=== PATIENT | female | born 1980 | race Caucasian/White ===

== ENCOUNTER 2017-04-15 09:01 | Emergency (ER) | payer SELFPAY ==
[~2017-04-15] VITALS: Ht 167.6 cm; Wt 72.4 kg
[2017-04-15 09:03] VITALS: BP 132/75; PULSE 71; RESP 14; TEMP 98.5; O2SAT 99
[2017-04-15] MEDS ORDERED: PROBCAP11 PO (09:23)
[2017-04-15] MEDS ORDERED: SODIUM CHLORIDE 0.9% FLUSH 10 ML FLUSH IV FLUSH PRN (09:45)
[2017-04-15 10:13] VITALS: BP 132/75; PULSE 70; RESP 16
--- NOTE | 2017-04-15 10:14 | RADRPT ---
EXAM DATE/TIME: 04/15/2017 09:50 [place] COMPARISON: No previous studies available for comparison. INDICATIONS : Right upper quadrant pain. MEDICAL HISTORY : PCOS. SURGICAL HISTORY : Cervical biopsy. ENCOUNTER: Initial ACUITY: 1 week PAIN SCORE: 2/10 LOCATION: Right upper quadrant MEASUREMENTS: LIVER: 20.3 cm length COMMON DUCT: 4 mm RIGHT KIDNEY: 13.0 x 6.1 x 4.4 cm FINDINGS: LIVER: Normal echotexture with a small cystic structure in the left lobe measuring approximately 1 cm. There is no ductal dilatation. The liver appears mildly prominent measuring up to 20 cm. COMMON DUCT: No intraluminal mass or stone visualized. GALLBLADDER: Contains no stones, demonstrates no wall thickening or pericholecystic fluid. PANCREAS: The visualized portions are within normal limits. RIGHT KIDNEY: No evidence of hydronephrosis, stone, or mass. CONCLUSION: 1. The gallbladder is unremarkable in appearance with no evidence of cholelithiasis. 2. The liver appears mildly prominent in size with small simple cyst in the left lobe. Connor Saldivar MD on April 15, 2017 at 10:11 Board Certified Radiologist. This report was verified electronically.
--- NOTE | 2017-04-15 10:35 | PD ---
HPI Chief Complaint: GI Complaint Time Seen by Provider: 09:30 Travel History International Travel<30 days: No Contact w/Intl Traveler<30days: No Traveled to known affect area: No History of Present Illness HPI This is a 36-year-old female who presents to the emergency department with several days of pain in her right upper abdomen, moderate severity, constant, worse with deep breaths, improved with rest. Initially she thought she pulled something because she does work out but the pain has been getting more intense. She denies any nausea, vomiting, fevers, chills, diarrhea or constipation. She's not had any dysuria or hematuria and denies any vaginal discharge. Her last menstrual cycle was one week ago. She does drink alcohol on a daily basis. PFSH Past Medical History Reproductive: Yes (PCOS) Tetanus Vaccination: < 5 Years Influenza Vaccination: Yes ?: Not LMP: LAST WEEK Past Surgical History Other Surgery: Yes (CERVICAL BIOPSY) Social History Alcohol Use: Yes (DAILY) Tobacco Use: Yes (VAPE) Substance Use: No Allergies-Medications (Allergen,Severity, Reaction): Coded Allergies: bee venom protein (honey bee) (Verified Allergy, Unknown, 04/15/17) Reported Meds & Prescriptions Reported Meds & Active Scripts Active Reported [Probiotic] 1 Chew PO DAILY Review of Systems Except as stated in HPI: all other systems reviewed are Neg Physical Exam Narrative GENERAL:Well appearing, no acute distress SKIN: Focused skin assessment warm and dry. HEAD: Atraumatic. Normocephalic. EYES: Pupils equal and round. No injection or drainage. ENT: Moist mucous membranes NECK: Trachea midline. CARDIOVASCULAR: Regular rate and rhythm. No murmur appreciated. RESPIRATORY: Clear to auscultation. Breath sounds equal bilaterally. GASTROINTESTINAL: Abdomen soft, tender to palpation in the right upper quadrant and right lower quadrants with no rebound or guarding. MUSCULOSKELETAL: No obvious deformities. NEUROLOGICAL: Awake and alert. No obvious cranial nerve deficits. Moving all extremities. PSYCHIATRIC: Appropriate mood and affect; insight and judgment normal. Data Data Last Documented VS Vital Signs Date Time Temp Pulse Resp B/P (MAP) Pulse Ox O2 Delivery O2 Flow Rate FiO2 04/15/17 10:13 70 16 132/75 (94) Room Air 04/15/17 09:03 98.5 99 Orders Orders Complete Blood Count With Diff (04/15/17 09:40) Comprehensive Metabolic Panel (04/15/17 09:40) Lipase (04/15/17 09:40) Urinalysis - C+S If Indicated (04/15/17 09:40) Us Abdomen Gallbladder (04/15/17 ) Iv Access Insert/Monitor (04/15/17 09:40) Ecg Monitoring (04/15/17 09:40) Oximetry (04/15/17 09:40) Sodium Chloride 0.9% Flush (Ns Flush) (04/15/17 09:45) Ed Urine Pregnancytest Poc (04/15/17 09:40) Labs Laboratory Tests Test 04/15/17 10:05 04/15/17 10:15 White Blood Count 9.7 TH/MM3 Red Blood Count 3.96 MIL/MM3 Hemoglobin 13.5 GM/DL Hematocrit 39.5 % Mean Corpuscular Volume 99.8 FL Mean Corpuscular Hemoglobin 34.2 PG Mean Corpuscular Hemoglobin Concent 34.3 % Red Cell Distribution Width 13.4 % Platelet Count 193 TH/MM3 Mean Platelet Volume 8.5 FL Neutrophils (%) (Auto) 62.6 % Lymphocytes (%) (Auto) 28.4 % Monocytes (%) (Auto) 6.8 % Eosinophils (%) (Auto) 1.4 % Basophils (%) (Auto) 0.8 % Neutrophils # (Auto) 6.1 TH/MM3 Lymphocytes # (Auto) 2.7 TH/MM3 Monocytes # (Auto) 0.7 TH/MM3 Eosinophils # (Auto) 0.1 TH/MM3 Basophils # (Auto) 0.1 TH/MM3 CBC Comment DIFF FINAL Differential Comment Blood Urea Nitrogen 13 MG/DL Creatinine 0.74 MG/DL Random Glucose 88 MG/DL Total Protein 7.3 GM/DL Albumin 3.6 GM/DL Calcium Level 9.2 MG/DL Alkaline Phosphatase 51 U/L Aspartate Amino Transf (AST/SGOT) 27 U/L Alanine Aminotransferase (ALT/SGPT) 35 U/L Total Bilirubin 0.4 MG/DL Sodium Level 139 MEQ/L Potassium Level 4.1 MEQ/L Chloride Level 105 MEQ/L Carbon Dioxide Level 28.7 MEQ/L Anion Gap 5 MEQ/L Estimat Glomerular Filtration Rate 89 ML/MIN Lipase 123 U/L Urine Color LIGHT-YELLOW Urine Turbidity CLEAR Urine pH 7.5 Urine Specific [place] 1.006 Urine Protein NEG mg/dL Urine Glucose (UA) NEG mg/dL Urine Ketones NEG mg/dL Urine Occult Blood NEG Urine Nitrite NEG Urine Bilirubin NEG Urine Urobilinogen LESS THAN 2.0 MG/DL Urine Leukocyte Esterase NEG Urine RBC LESS THAN 1 /hpf Urine Squamous Epithelial Cells 1 /hpf Microscopic Urinalysis Comment CULT NOT INDICATED MDM Medical Decision Making Medical Screen Exam Complete: Yes Emergency Medical Condition: Yes Interpretation(s) Afebrile, no tachycardia, normotensive No leukocytosis Electrolytes are reassuring Lipase is normal Urinalysis is negative for infection Chest x-ray: Reassuring Ultrasound with no evidence of cholelithiasis Differential Diagnosis Cholelithiasis, cholecystitis, pancreatitis, gastritis, peptic ulcer disease, costochondritis, pulmonary embolism Narrative Course This is a 36-year-old female who presents to the emergency department with right upper quadrant abdominal pain. She has a fairly benign physical exam but is tender in the right upper quadrant and epigastrium. She has normal vital signs including an oxygen saturation of 99%. Labs are obtained which were all reassuring. Ultrasound of the right upper quadrant demonstrates no stones. Urinalysis is negative for blood so I doubt kidney stone. She is PERC negative so I doubt pulmonary embolism. I suspect this is a muscle strain. I advised her to use anti-inflammatories and heat as needed. Patient can follow up with her primary care physician if she doesn't improve. Diagnosis Primary Impression: Muscle strain Patient Instructions: General Instructions Additional Instructions: If you develop severe chest pain, shortness of breath, sweating, lightheadedness , dizziness or difficulty breathing return to the emergency department immediately. Followup with your primary care physician in 2-3 days if your symptoms are not resolved. Med/Other Pt SpecificInfo: Prescription(s) given Scripts Naproxen (Naproxen) 500 Mg Tab 500 MG PO BID Y for PAIN SCALE 4 TO 10, #20 TAB 0 Refills Prov: Em Hlolingsworth MD 04/15/17 Disposition: 01 DISCHARGE HOME Condition: Stable Em Hollingsworth MD Apr 15, 2017 10:35
[2017-04-15 10:38] LABS: AUTOMATED NEUTROPHIL # 6.1 TH/MM3 (1.8-7.7); BASOPHIL # 0.1 TH/MM3 (0-0.2); BASOPHIL % 0.8 % (0.0-2.0); EOSINOPHIL # 0.1 TH/MM3 (0-0.4); EOSINOPHIL % 1.4 % (0.0-4.0); HEMATOCRIT 39.5 % (35.0-46.0); HEMOGLOBIN 13.5 GM/DL (11.6-15.3); LYMPH % 28.4 % (9.0-44.0); LYMPHOCYTE # 2.7 TH/MM3 (1.0-4.8); MEAN CELL VOLUME 99.8 FL (80.0-100.0); MEAN CORPUSCULAR HEMOGLOBIN 34.2 PG (27.0-34.0); MEAN CORPUSCULAR HGB CONC 34.3 % (32.0-36.0); MEAN PLATELET VOLUME 8.5 FL (7.0-11.0); MONO % 6.8 % (0.0-8.0); MONOCYTE # 0.7 TH/MM3 (0-0.9); NEUT % 62.6 % (16.0-70.0); PLATELET COUNT 193 TH/MM3 (150-450); RED BLOOD COUNT 3.96 MIL/MM3 (4.00-5.30); RED CELL DISTRIBUTION WIDTH 13.4 % (11.6-17.2); WHITE BLOOD COUNT 9.7 TH/MM3 (4.0-11.0)
[2017-04-15 10:44] LABS: BILIRUBIN, URINE NEG (NEG); BLOOD, URINE NEG (NEG); GLUCOSE,URINE NEG (NEG); KETONE, URINE NEG (NEG); NITRITE,URINE NEG (NEG); PH, URINE 7.5 (5.0-8.5); SQUAMOUS EPITHELIAL CELL URINE 1 /hpf (0-5); URINE COLOR LIGHT-YELLOW (YELLW/STRAW); URINE LEUKOCYTE ESTERASE NEG (NEG)
[2017-04-15 10:52] LABS: ALBUMIN 3.6 GM/DL (3.4-5.0); ALT (GPT) 35 U/L (10-53); AST (GOT) 27 U/L (15-37); BICARBONATE 28.7 MEQ/L (21.0-32.0); BLOOD UREA NITROGEN 13 MG/DL (7-18); CALCIUM 9.2 MG/DL (8.5-10.1); CHLORIDE 105 MEQ/L (98-107); CREATININE 0.74 MG/DL (0.50-1.00); GLOMERULAR FILTRATION RATE 89 ML/MIN (>89); GLUCOSE,RANDOM 88 MG/DL (74-106); LIPASE 123 U/L (73-393); SODIUM (NA) 139 MEQ/L (136-145)
[2017-04-15 10:55] LABS: ALKALINE PHOSPHATASE 51 U/L (45-117); TOTAL BILIRUBIN ADULT 0.4 MG/DL (0.2-1.0); TOTAL PROTEIN 7.3 GM/DL (6.4-8.2)
[2017-04-15] MEDS ORDERED: NAPR500T2 PO (11:05)
[2017-04-15 11:17] VITALS: BP 119/70
== END 2017-04-15 11:15 | disposition home or self-care (01) ==
LOC: NEPD 09:01
DX: S39.011A Strain of muscle, fascia and tendon of abdomen, initial encounter (principal); X58.XXXA Exposure to other specified factors, initial encounter
CPT/HCPCS: 76705; 80053; 81001; 83690; 84703; 85025